=== PATIENT | male | born 1980 | race Caucasian/White ===

== ENCOUNTER → 2024-12-08 13:35 | Outpatient (REF) | payer BC, SELFPAY | LOC: MRI 3T 13:35 | PROVIDERS: ATTENDING PHYSICIAN Student in an Organized Health Care Education/Training Program; FAMILY PHYSICIAN Student in an Organized Health Care Education/Training Program | DX: M25.552 Pain in left hip (principal); S73.192A Other sprain of left hip, initial encounter | CPT/HCPCS: 27093; 73525; 73722 ==